=== PATIENT | male | born 1945 | race Hispanic/Latino ===

== ENCOUNTER → 2017-06-09 | Outpatient (CLI) | payer BC, OTHER ==
[~2017-06-09] MED LIST: FLOMAX0.4 MG PO; HYDROCHLOROTHIA25 MG PO
--- NOTE | 2017-06-09 10:21 | Diagnostic Imaging Report ---
TECHNIQUE: Magnetic resonance imaging of the RIGHT KNEE was performed WITHOUT injected contrast. HISTORY: Right knee pain, evaluate for meniscal tear COMPARISON: None available. FINDINGS: LIGAMENTS AND TENDONS: ACL: Intact PCL: Intact Collateral ligaments: Intact Iliotibial band: Unremarkable Popliteal tendon: Intact Extensor mechanism: Proximal patellar tendinosis. JOINT: Menisci: Medial: Complex tearing with dominant horizontal component involving the body and posterior horn. Lateral: Intact without tear. Articular Cartilage: Medial Compartment: Diffuse high-grade cartilage loss with areas of full-thickness erosion and subchondral edema. Lateral Compartment: Diffuse low-grade cartilage loss Patellofemoral Compartment: Diffuse intermediate grade cartilage loss Joint Fluid: The amount of fluid within the joint is within physiologic limits. BONE: As above No acute fracture. SOFT TISSUES: Otherwise, unremarkable. IMPRESSION: Medial meniscus complex tearing with dominant horizontal component results in diffuse high-grade cartilage loss with areas of full-thickness erosion and subchondral edema at the medial joint line. Signed by: Dr. David Jarvis M.D. on 06/09/2017 10:18 AM
== END ==
LOC: MRI 09:03
PROVIDERS: ATTEND Specialist
DX: S83.221A Peripheral tear of medial meniscus, current injury, right knee, initial encounter (principal); M17.11 Unilateral primary osteoarthritis, right knee

== ENCOUNTER → 2017-06-18 | Day surgery (SDC) | payer BC, OTHER ==
[2017-06-16 10:12] LABS: BASOPHILS # (AUTO) 0.1 (0.0-0.1); BASOPHILS % 0.8 % (0.0-1.0); EOSINOPHILS # (AUTO) 0.2 (0.0-0.4); EOSINOPHILS % 2.6 % (0.0-6.0); HEMATOCRIT 42.3 % (38.2-49.6); HEMOGLOBIN 14.3 g/dL (14.0-18.0); LYMPHOCYTES # (AUTO) 1.8 (1.0-3.2); LYMPHOCYTES % 29.6 % (18.0-39.1); MEAN CORPUSCULAR HEMOGLOBIN 30.6 pg (28-32); MEAN CORPUSCULAR HGB CONC 33.8 g/dL (31-35); MEAN CORPUSCULAR VOLUME 90.6 fL (81-99); MONOCYTES # (AUTO) 0.6 (0.2-0.8); MONOCYTES % 10.3 % (4.4-11.3); NEUTROPHILS # (AUTO) 3.5 (2.1-6.9); NEUTROPHILS % 56.4 % (38.7-80.0); PLATELET COUNT 131 x10e3/uL (140-360); RED BLOOD COUNT 4.67 x10e6/uL (4.3-5.7); RED CELL DISTRIBUTION WIDTH 12.6 % (11.7-14.4)
--- NOTE | 2017-06-16 10:27 | Diagnostic Imaging Report ---
PROCEDURE:CHEST 2 VIEWS TECHNIQUE:PA and lateral chest totaling 3 radiographs INDICATION:Preoperative evaluation for knee surgery. COMPARISON:None. FINDINGS: Lungs are clear and symmetrically inflated. No pleural effusions. Normal heart size and central vasculature. Mildly tortuous thoracic aorta. Intact skeleton. CONCLUSION: No acute abnormality. Dictated by: Ziggy Aguirre M.D. on 06/16/2017 at 10:36 Electronically approved by: Ziggy Aguirre M.D. on 06/16/2017 at 10:36
[2017-06-16 10:28] LABS: ANION GAP 12.4 mmol/L (8-16); BLOOD UREA NITROGEN 14 mg/dL (7-26); BUN/CREATININE RATIO 18 (6-25); CARBON DIOXIDE 28 mmol/L (22-29); CHLORIDE 103 mmol/L (98-107); EST GLOMERULAR FILTRATION RATE > 60 ML/MIN (60-); GLUCOSE 105 mg/dL (74-118); POTASSIUM 4.4 mmol/L (3.5-5.1); SODIUM 139 mmol/L (136-145)
[~2017-06-18] MED LIST changes: +BUPIVACAINE HCL 0.5% INJ 30 ML VIAL INJ ONE; +CEFAZOLIN SOD 2 GM/D5W 50ML 50 ML IV ONE; +DEXAMETHASONE SOD PHOS INJ 4 MG/ML VIAL ONE; +KETOROLAC TROMETHAMINE 30 MG/ML VIAL ONE; +LIDOCAINE HCL 2% LOCAL INJ 5 ML SDV VIAL INJ ONE; +ONDANSETRON HCL INJ 2 MG/ML VIAL ONE; +PROPOFOL IV EMULSION 10 MG/ML 20 ML VIAL ONE; +SEVOFLURANE INHAL SOLN 250 ML PEN BTL ONE
--- OUTSIDE RECORDS SUMMARY | 2017-06-18 10:59 | XMS REPORT ---
Author Author [facility] Address Unknown Phone Unavailable Care Team Providers Care Podiatric Medicine Doctor Name Role Phone SHARATH TEIXEIRA Unavailable Unavailable Problems This patient has no known problems. Allergies, Adverse Reactions, Alerts This patient has no known allergies or adverse reactions. Medications This patient has no known medications. Results Test Description Test Time Test Comments Text Results Atomic Results Result Comments CHEST 2 VIEWS [place] [address] Patient Name: BILLY ROSE MR #: [id number] : 1945 Age/Sex: 71/M Req # : [id number] Adm Physician: Ordered by: SHARATH TEIXEIRA MD Report #: [id number] Location: OR Room/Bed: Procedure: [id number] DX/CHEST 2 VIEWS Exam Date: 06/16/17 Exam Time : 0940 REPORT STATUS: Signed PROCEDURE: CHEST 2 VIEWS TECHNIQUE: PA and lateral chest totaling 3 radiographs INDICATION: Preoperative evaluation for knee surgery. COMPARISON: None. FINDINGS: Lungs are clear and symmetrically inflated. No pleural effusions. Normal heart size and central vasculature. Mildly tortuous thoracic aorta. Intact skeleton. CONCLUSION: No acute abnormality. Dictated by: Charli Aguirre M.D. on 06/16/2017 at 10:36 Electronically approved by: Charli Aguirre M.D. on 06/16/2017 at 10:36 Dictated By: CHARLI AGUIRRE MD [id number] Transcribed By: LACHO on 06/16/17 1036 COPY TO: SHARATH TEIXEIRA MD MRI RIGHT KNEE WO [place] [address] Patient Name: BILLY ROSE MR #: [id number] : 1945 Age/Sex: 71/M Req #: [id number] Adm Physician: Ordered by: SHARATH TEIXEIRA MD Report #: [id number] Location: MRI Room/Bed: Procedure: [id number] MRI/MRI RIGHT KNEE WO Exam Date: 06/09/17 Exam Time : 0920 REPORT STATUS: Signed TECHNIQUE: Magnetic resonance imaging of the RIGHT KNEE was performed WITHOUT injected contrast. HISTORY: Right knee pain, evaluate for meniscal tear COMPARISON: None available. FINDINGS: LIGAMENTS AND TENDONS: ACL: Intact PCL: Intact Collateral ligaments: Intact Iliotibial band: Unremarkable Popliteal tendon: Intact Extensor mechanism: Proximal patellar tendinosis. JOINT: Menisci: Medial: Complex tearing with dominant horizontal component involving the body and posterior horn. Lateral: Intact without tear. Articular Cartilage: Medial Compartment: Diffuse high-grade cartilage loss with areas of full- thickness erosion and subchondral edema. Lateral Compartment: Diffuse low-grade cartilage loss Patellofemoral Compartment: Diffuse intermediate grade cartilage loss Joint Fluid: The amount of fluid within the joint is within physiologic limits. BONE: As above No acute fracture. SOFT TISSUES: Otherwise, unremarkable. IMPRESSION: Medial meniscus complex tearing with dominant horizontal component results in diffuse high-grade cartilage loss with areas of full- thickness erosion and subchondral edema at the medial joint line. Signed by: Dr. Wanda Glasgow M.D. on 06/09/2017 10:18 AM Dictated By: WANDA GLASGOW MD 1018 Transcribed By: SHARIFA on 06/09/17 1018 COPY TO: SHARATH TEIXEIRA MD
--- NOTE | 2017-06-20 00:38 | Operative Report ---
DATE OF PROCEDURE: June 18, 2017 PREOPERATIVE DIAGNOSES 1. Right knee medial meniscus tear. 2. Right knee degenerative joint disease of the knee. POSTOPERATIVE DIAGNOSES 1. Right knee medial meniscus tear. 2. Right knee degenerative joint disease of the knee. OPERATION/PROCEDURE PERFORMED: Patient underwent 1. Right knee exam under anesthesia. 2. Right knee arthroscopy. 3. Right knee partial medial meniscectomy. 4. Right knee chondroplasty of patella, trochlea, medial femoral condyle, medial plateau, lateral femoral condyle, notch plateau. FRONT OFFICE REPRESENTATIVE: There was no assist. ANESTHESIA: General endotracheal intubation anesthesia. IV FLUIDS: Per anesthesia record. BRIEF DESCRIPTION OF THE OPERATIVE PROCEDURE: Mr. Fernández was taken to the operating room, placed in supine position on the operating table. Following induction of general anesthesia as well as endotracheal intubation, the patient's right lower extremity was examined under anesthesia. He was found to have a mild effusion within the knee joint but otherwise ligamentously stable knee. The patient's lower extremity was prepped and draped in standard surgical fashion. A 2-port technique was used to provide this patient arthroscopic evaluation of the knee joint. Examination of the suprapatellar pouch, medial and lateral gutters found no evidence of loose bodies. There was however evidence of chondromalacia of the patellar and trochlear surfaces. Scope was advanced in the medial compartment. There was a torn medial meniscus. There was also chondromalacia of articulating surfaces. A combination of biting forceps and motorized shaver was used to resect the torn portion of the meniscus. Chondroplasties of the medial femoral condyle and medial tibial plateau were performed at this time. The scope was then advanced into the intracondylar notch. The anterior cruciate ligament was identified and found to be intact. The scope was then advanced to the lateral compartment. Chondroplasty of the lateral femoral condyle, notch, plateau performed at this time. Scope was then placed in the suprapatellar pouch and chondroplasties of patella and trochlea were performed. The knee was deflated of its sterile normal saline. The portal sites were closed using 4-0 nylon suture. The portal sites as well as the knee itself was injected with 0.5% Marcaine with epinephrine. Sterile dressings were applied, and the patient was then awakened and taken to postanesthesia care unit in stable condition. Job#: [id number] THONY
== END | disposition home or self-care (01) ==
LOC: OR 10:56
PROVIDERS: ATTEND Specialist
DX: S83.221A Peripheral tear of medial meniscus, current injury, right knee, initial encounter (principal); M17.11 Unilateral primary osteoarthritis, right knee; M22.41 Chondromalacia patellae, right knee; R03.0 Elevated blood-pressure reading, without diagnosis of hypertension; N40.0 Benign prostatic hyperplasia without lower urinary tract symptoms; R00.1 Bradycardia, unspecified; Z01.810 Encounter for preprocedural cardiovascular examination; Z01.812 Encounter for preprocedural laboratory examination; Z01.818 Encounter for other preprocedural examination
CPT/HCPCS: 29881; 36415; 71046; 80048; 85025; 93005; J1100; J1885; J2001; J2405